=== PATIENT | male | born 1995 | race Caucasian/White ===

== ENCOUNTER 2021-06-18 17:56 | Emergency (ER) | payer OTHER, SELFPAY ==
--- NOTE | ~2021-06-18 | XR_ITS ---
XR chest 2V DATE: 06/18/2021 18:20 INDICATION: Cough and shortness of breath for 4 days TECHNIQUE: PA and lateral views COMPARISON: None FINDINGS: Normal heart size. No hilar or mediastinal enlargement. No pulmonary infiltrate or consolid ation, pleural effusion or pulmonary vascular congestion or pneumothorax. Included skeletal structure s are unremarkable. IMPRESSION: Negative Reviewed, dictated and finalized at location A. IMPRESSION: Negative
--- NOTE | 2021-06-18 18:00 | ED.SOB ---
HPI - SOB/Dyspnea General Chief Complaint: Shortness of Breath/Dyspnea Stated Complaint: sob/cough/dizzy/heart racing Time Seen by Provider: 06/18/21 18:00 Source: patient and RN notes reviewed History of Present Illness HPI Narrative: Patient is a 25-year-old male who presents the urgent care with complaints of intermittent shortness of breath, dizziness, mild cough and some palpitations. Patient states that he does have a history of anxiety and has not been on medication for approximately 2 years. Patient denies any concern for Covid. States that he has been vaccinated and denies of any recent exposure. Denies of any upper respiratory complaints. Denies of fever, chills, nausea, vomiting, chest pain. Patient states that symptoms come and go and he currently denies of palpitations or dizziness at this time. Patient has not taken anything [id number] for symptoms. No other acute complaints. No acute distress noted. Patient read the plan of care. Some parts of this dictation were generated by voice recognition software and may contain typographical and/or grammatical inaccuracies. Related Data Allergies Allergy/AdvReac Type Severity Reaction Status Date / Time No Known Allergies Allergy Unverified 09/10/17 10:00 Review of Systems Review of Systems: CONSTITUTIONAL: Denies fever, chills, or sweats. EYES: Denies visual changes, redness, or discharge. ENT: Denies rhinorrhea, congestion, sore throat, or otalgia. CARDIOVASCULAR: Denies chest pain or edema. Reports of palpitations RESPIRATORY: Reports a mild cough with intermittent dyspnea GASTROINTESTINAL: Denies abdominal pain, nausea, vomiting, or diarrhea. GENITOURINARY: Denies dysuria or hematuria. SKIN: Denies rash or itching. MUSCULOSKELETAL: Denies back pain, joint pain, or myalgia. NEUROLOGIC: Denies headache, numbness, or weakness. All other systems reviewed are negative, except as documented in HPI. PMFSH Social History Social History Alcohol intake: never Comments At the time of my signature, I reviewed and agree with the nursing past medical, surgical, social, and family history. There is no relevant family history pertinent to the patient complaint. Exam Narrative: GENERAL: This is a well-nourished, well-developed patient, in no apparent distress. HEAD: normocephalic, atraumatic. EYES: PERRL. Sclera clear/white. Vision is grossly intact. EARS: External ears normal NOSE: External nose normal with no obvious nasal discharge, nares without redness, no rhinorrhea. THROAT: Mucous membranes moist NECK: Neck supple CARDIOVASCULAR: Regular rate and rhythm without murmurs, gallops, or rubs. RESPIRATORY: Clear to auscultation. Breath sounds equal bilaterally. No wheezes, rales, or rhonchi. SKIN: warm, intact with no suspicious lesions or rash, good texture and turgor. NEURO: awake, alert, and oriented to person, place and time. There were no obvious focal neurologic abnormalities. EXTREMITIES: No clubbing, cyanosis, or edema. Course Vital Signs Vital signs: Vital Signs Temperature 98.0 F 06/18/21 18:03 Pulse Rate 84 06/18/21 18:03 Respiratory Rate 16 06/18/21 18:03 Blood Pressure 136/88 06/18/21 18:03 Pulse Oximetry 100 06/18/21 18:03 Temperature 98.0 F 06/18/21 18:03 Pulse Rate 84 06/18/21 18:03 Respiratory Rate 16 06/18/21 18:03 Blood Pressure 136/88 06/18/21 18:03 Pulse Oximetry 100 06/18/21 18:03 Reviewed MDM - SOB/Dyspnea MDM Narrative Medical decision making narrative: Reviewed EKG read with the patient. He is aware that EKG is within normal limits without any acute cardiac concern. Reviewed x-ray results with the patient. He is aware that chest x-ray is within normal limits without any acute abnormality or concern for pneumonia. Patient is aware that we are not able to rule out complete cardiac events or a blood clot in the lung. Chances of those above conditions are very low and you do not have any risk
[2021-06-18 18:03] VITALS: BP 136/88; PULSE 84; RESP 16; TEMP 36.7; O2SAT 100
--- NOTE | 2021-06-18 18:13 | ECG_ITS ---
Measurements Intervals Bath Rate: 76 P: 30 AL: 180 QRS: 11 QRSD: 95 T: 31 QT: 389 QTc: 438 Interpretive Statements SINUS RHYTHM NORMAL ECG Electronically Signed On 06-19-2021 6:53:06 CDT by Quan Katz D.O.
== END 2021-06-18 18:55 | disposition home or self-care (01) ==
PROVIDERS: Emergency Provider Nurse Practitioner Family
DX: F41.9 Anxiety disorder, unspecified (principal)
CPT/HCPCS: 71046; 93005; 99213; G0463

== ENCOUNTER → 2021-10-19 01:19 | Outpatient (CLI) | payer OTHER, SELFPAY ==
[2021-10-20 15:56] LABS: SARS-CoV-2 RNA PCR Negative
== END ==
PROVIDERS: PCP Family Medicine; Visit Provider Emergency Medicine
DX: J06.9 Acute upper respiratory infection, unspecified (principal); Z20.822 Contact with and (suspected) exposure to COVID-19
CPT/HCPCS: C9803; U0003; U0005

== ENCOUNTER 2023-06-28 16:26 | Emergency (ER) | payer BC, SELFPAY ==
[2023-06-28 16:40] VITALS: BP 152/87; PULSE 73; RESP 16; TEMP 36.5; O2SAT 100
--- NOTE | 2023-06-28 17:05 | ED.EXTPRO ---
HPI - Extremity Problem General Chief complaint: Extremity Problem,Nontraumatic Stated complaint: leg pain History of Present Illness HPI Narrative: Patient presents with pain on off to his left knee. No injury no swelling no deformity no open areas noted. Patient states he works long hours on his feet at work and has not taking anything for pain or discomfort at this time. Related Data Allergies Allergy/AdvReac Type Severity Reaction Status Date / Time No Known Allergies Allergy Verified 03/25/23 13:33 Review of Systems Review of Systems: CONSTITUTIONAL: Denies fever, chills, or sweats. EYES: Denies visual changes, redness, or discharge. ENT: Denies rhinorrhea, congestion, sore throat, or otalgia. CARDIOVASCULAR: Denies chest pain, palpitations, or edema. RESPIRATORY: Denies cough or dyspnea. GASTROINTESTINAL: Denies abdominal pain, nausea, vomiting, or diarrhea. GENITOURINARY: Denies dysuria or hematuria. SKIN: Denies rash or itching. MUSCULOSKELETAL: Denies back pain, joint pain, or myalgia. NEUROLOGIC: Denies headache, numbness, or weakness. PSYCHIATRIC: Denies anxiety or depression. [facility] Past Medical History Medical History COVID-19 Social History Social History Smoking status: Never smoker Tobacco type: e-cigarettes/vaping Alcohol intake: current Drinks per week: 14 Substance use type: does not use Gender identity (if verbalized by the patient): Male Comments At time of signature, agree with nursing past medical, surgical, social and family history. There is no relevant family history pertinent to the presenting complaint Exam Narrative: GENERAL: Well-appearing, well-nourished, and in no acute distress. HEAD: Normocephalic, atraumatic. EYES: PERRLA and EOMI. ENT: Nares clear, no rhinorrhea or epistaxis. Mucous membranes moist. NECK: Supple. CHEST: Clear to auscultation. No respiratory distress. HEART: Regular rate and rhythm. No murmur heard. Normal peripheral pulses. ABDOMEN: Soft, nontender, nondistended, normal active bowel sounds. EXTREMITIES: Normal range of motion. No edema. Left knEE EXAM - SKIN INTACT. NO DEFORMITY. NO SIGNIFICANT SWELLING. NORMAL ROM, HAS FULL EXTENSION AND FLEXION. COMPARTMENTS SOFT. NO CALF TENDERNESS. NEGATIVE ANTERIOR, POSTERIOR DRAWER SIGNS ON TEST. NO CREPITUS. DP PULSE, NORMAL CAPILLARY REFILL. NEGATIVE JENAE'S. NEGATIVE AYAN'S SKIN: Warm, dry, no rash. NEURO: No focal deficits. Alert and oriented x3. [place] Coma Scale Eye Opening: Spontaneous 4 [place]isa Coma Scale Motor: Obeys Commands 6 [place] Coma Scale Verbal: Oriented 5 Melisa Coma Scale Total 15 Course Course Level of Care: Express Care Visit Vital Signs Vital signs: Vital Signs Temperature 36.5 C 06/28/23 16:40 Pulse Rate 73 06/28/23 16:40 Respiratory Rate 16 06/28/23 16:40 Blood Pressure 152/87 H 06/28/23 16:40 Pulse Oximetry 100 06/28/23 16:40 Oxygen Delivery Room Air 06/28/23 16:40 Temperature 36.5 C 06/28/23 16:40 Pulse Rate 73 06/28/23 16:40 Respiratory Rate 16 06/28/23 16:40 Blood Pressure 152/87 H 06/28/23 16:40 Pulse Oximetry 100 06/28/23 16:40 Oxygen Delivery Room Air 06/28/23 16:40 Patient platelet declined imaging at this time and states there was no injury no swelling no deformity to knee. Patient states he will start taking ibuprofen and elevate extremity and call PCP in a.m. for further evaluation treatment. Discussed red flags and when to go to ER. Discharge Plan Discharge Clinical Impression: Knee pain Patient Disposition: Home, Self-Care Condition: Stable Instructions: Knee Pain (ED) Additional Instructions: Elevate extremity Tylenol alternating with ibuprofen as needed for pain or discomfort Follow-up with primary care provider as soon as possible for possible lab work and further kim
== END 2023-06-28 17:11 | disposition home or self-care (01) ==
PROVIDERS: Emergency Provider Nurse Practitioner Family; PCP Family Medicine
DX: M25.562 Pain in left knee (principal)
CPT/HCPCS: 99212; G0463

== ENCOUNTER 2024-02-28 14:14 | Emergency (ER) | payer BC, SELFPAY ==
[2024-02-28 14:20] VITALS: BP 130/89; PULSE 86; RESP 20; TEMP 36.6; O2SAT 100
--- NOTE | 2024-02-28 14:30 | ED.EYEPROB ---
HPI - Eye Problem General Chief complaint: Eye Problems Stated complaint: Right Eye Injury Time Seen by Provider: 02/28/24 14:30 Source: patient, RN notes reviewed and old records reviewed Mode of arrival: ambulatory Limitations: no limitations History of Present Illness HPI Narrative: 28 year old male who present to [facility] care with complaints of mowing yesterday and hit something in the yard which hit side of garage and then hit his right eye. Patient reports that he has pain and difficulty opening his right eye, sensitive to light,with visual blurring reported, Patient rates pain to right eye at 7/10. Visual acuity without correction right 20/40, left 20/20. Patient reports that he had just taken his sun glasses off for short interval prior to incident MD chief complaint: eye redness, eye injury and other (blurry vision,) Onset (ago): day(s) (since yesterday) Onset description: sudden Location: right eye Eye Symptoms: pain Severity scale (1-10): 7 Treatments Prior to Arrival: irrigated eye and other (saline eye drops) Related Data Allergies Allergy/AdvReac Type Severity Reaction Status Date / Time No Known Allergies Allergy Verified 02/28/24 14:37 Review of Systems Review of Systems: CONSTITUTIONAL: Denies fever, chills, or sweats. EYES: Reports visual changes blurring, photophobia.Reports redness irritation and tearing and pain to right eye ENT: Denies rhinorrhea, congestion, sore throat, or otalgia. CARDIOVASCULAR: Denies chest pain, palpitations, or edema. RESPIRATORY: Denies cough or dyspnea. SKIN: Denies rash or itching. NEUROLOGIC: Denies headache All systems reviewed & are unremarkable except as noted in HPI and below PMFSH Past Medical History Medical History (Updated 02/29/24 @ 10:40 by Damaris Arnett NP) Anxiety COVID-19 Surgical History Surgical History (Updated 02/29/24 @ 10:27 by Damaris Arnett NP) History of surgical removal of testicle left twisted Social History Social History Smoking status: Current every day smoker Tobacco type: e-cigarettes/vaping Alcohol intake: current Drinks per week: 14 Substance use type: does not use Gender identity (if verbalized by the patient): Male Comments At time of signature, agree with nursing past medical, surgical, social and family history. There is no relevant family history pertinent to the presenting complaint Exam Narrative: GENERAL: Well-appearing, well-nourished, and in no acute distress. HEAD: Normocephalic, atraumatic. EYES: PERRLA and EOMI. Upper and lower eyelids unremarkable. No periorbital cellulitis noted. Sclera red with photophobia right eye with verbalized visual blurring and sharp pain right eye see procedure note ENT: Nares clear, no rhinorrhea or epistaxis. Mucous membranes moist NECK: Supple.no lymphadenopathy CHEST: Clear to auscultation. No respiratory distress.SAO2 100% on room air HEART: Regular rate and rhythm. No murmur heard. Normal peripheral pulses. SKIN: Warm, dry, no rash. NEURO: No focal deficits. Alert and oriented x3. Course Course Emergency Course: Patient is aware of diagnosis, understands and agrees to treatment plan. Anticipatory guidance given. Patient agrees to follow-up as directed and is aware of reasons to seek care at the emergency department. Portions of this record may have been created with voice recognition software Level of Care: Express Care Visit Vital Signs Vital signs: Vital Signs Temperature 36.6 C 02/28/24 14:20 Pulse Rate 86 02/28/24 14:20 Respiratory Rate 02/28/24 14:20 Blood Pressure 130/89 02/28/24 14:20 Pulse Oximetry 100 02/28/24 14:20 Oxygen Delivery Room Air 02/28/24 14:20 Temperature 36.6 C 02/28/24 14:20 Pulse Rate 86 02/28/24 14:20 Respiratory Rate 20 02/28/24 14:20 Blood Pressure 130/89 02/28/24 14:20 Pulse Oximetry 100 02/28/24 14:20 Oxygen Del
== END 2024-02-28 15:21 | disposition short-term general hospital (02) ==
PROVIDERS: Emergency Provider Registered Nurse; PCP Family Medicine
DX: S05.8X1A Other injuries of right eye and orbit, initial encounter (principal); W20.8XXA Other cause of strike by thrown, projected or falling object, initial encounter; Y93.H9 Activity, other involving exterior property and land maintenance, building and construction; F17.290 Nicotine dependence, other tobacco product, uncomplicated; Z86.16 Personal history of COVID-19
CPT/HCPCS: 99213; A9270; G0463